=== PATIENT | female | born 1985 | race Caucasian/White ===

== ENCOUNTER 2016-05-29 10:13 | Emergency (ER) | payer OTHER ==
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
--- NOTE | 2016-05-29 11:50 | CR ---
EXAMINATION: Cervical and lumbar spine HISTORY: Pain COMPARISON: None TECHNIQUE: AP and lateral views of the cervical spine in AP and lateral views of the lumbar spine FINDINGS: There is reversal of the normal cervical lordosis. The vertebral body heights appear well maintained . Mild disc space narrowing is noted at C6-C7. No fracture or acute osseous abnormality is noted. Th e prevertebral soft tissues appear normal. The lumbar spinal alignment appears normal. The vertebral body heights appear maintained. Anterior f usion hardware is noted at L4-L5 and L5-S1. Bone mineralization is normal. The SI joints are symmetr ic. No fracture or acute osseous abnormality. IMPRESSION: 1. Postsurgical changes noted within the lumbar spine. 2. No acute osseous abnormality noted within the cervical or lumbar spine.
[2016-05-29 13:02] VITALS: BP 115/60
== END 2016-05-29 12:15 | disposition home or self-care (01) ==
LOC: MW.ED 10:13
DX: M25.60 Stiffness of unspecified joint, not elsewhere classified (principal); V49.49XA Driver injured in collision with other motor vehicles in traffic accident, initial encounter; Y92.410 Unspecified street and highway as the place of occurrence of the external cause
CPT/HCPCS: 72040; 72040-26; 72100; 72100-26; 99282; 99283

== ENCOUNTER 2018-07-08 07:22 | Day surgery (SDC) | payer BC, OTHER ==
[2018-07-07 09:37] LABS: CHLORIDE,CL 106 mmol/L (98-107); SODIUM,NA 142 mmol/L (136-145)
[~2018-07-08 07:22] MED LIST: Sodium Chloride 0.9% 10 ML SDV IV PRN; Sodium Chloride 0.9% 10 ML Syringe FLUSH PRN; Sodium Chloride 0.9% 2.5 ML Syringe FLUSH PRN; ceFAZolin 2 GM in Premix Bag 1 BAG IV ONE
[2018-07-08] MEDS ORDERED: Fluorescein 5 ML Vial ONE (07:36)
[2018-07-08] MEDS ORDERED: Octyl 2-Cyanoacrylate 1 Tube ONE (07:53)
[2018-07-08] MEDS: Lactated Ringers 1,000 ML IV SCH ×2 (08:27→18:00)
[2018-07-08] MEDS ORDERED: Scopolamine 1.5 MG Transdermal Patch TRDERM PRN (08:53)
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
[2018-07-08] MEDS ORDERED: Lidocaine 2% 5 ML SDV ONE (09:16)
[2018-07-08] MEDS ORDERED: Rocuronium 100 MG/10 ML Syringe ONE (09:16)
[2018-07-08] MEDS ORDERED: fentaNYL 250 MCG/5 ML SDV ONE (09:17)
[2018-07-08] MEDS ORDERED: Midazolam 1 MG/ML 2 ML SDV ONE (09:17)
[2018-07-08] MEDS ORDERED: Propofol 200 MG/20 ML SDV ONE (09:17)
[2018-07-08] MEDS ORDERED: ceFAZolin/Dextrose,Iso-Osmotic 2 GM/50 ML Duplex Bag IV ONE (09:31)
[2018-07-08] MEDS ORDERED: Dexamethasone 4 MG/ML 5 ML MDV ONE (10:24)
[2018-07-08] MEDS ORDERED: Ondansetron 4 MG/2 ML SDV ONE (10:24)
[2018-07-08] MEDS ORDERED: Furosemide 40 MG/4 ML VIAL ONE (10:28)
[2018-07-08] MEDS ORDERED: Sodium Chloride 0.9% 20 ML ONE (10:28)
[2018-07-08] MEDS ORDERED: Neostigmine Methylsulfate 1 MG/ML 5 ML Syringe ONE (10:37)
[2018-07-08] MEDS ORDERED: Glycopyrrolate 0.2 MG/ML SDV ONE ×2 (10:37→10:48)
[2018-07-08] MEDS ORDERED: Ketorolac 30 MG/ML SDV IVPUSH ONE (10:48)
[2018-07-08] MEDS ORDERED: Morphine 4 MG/ML Syringe IVPUSH PRN (10:48)
[2018-07-08] MEDS ORDERED: Promethazine 25 MG/ML SDV IM PRN (10:48)
[2018-07-08] MEDS ORDERED: Ketorolac 30 MG/ML SDV IVPUSH PRN (10:48)
[2018-07-08] MEDS ORDERED: Acetaminophen/oxyCODONE 325-5 MG Tab PO PRN ×2 (10:48)
[2018-07-08] MEDS ORDERED: Ondansetron 4 MG/2 ML SDV IVPUSH PRN (10:48)
--- NOTE | 2018-07-08 10:51 | PCM.OPNOTE ---
- General Post-Op/Procedure Note Date of Surgery/Procedure: 07/08/18 Operative Procedure(s): TLH,Cycto Pre Op Diagnosis: bleeding Post-Op Diagnosis: Same Anesthesia Technique: General LMA Primary Surgeon: Jose Alfredo Xei EBL in mLs: 100 Complications: None Condition: Good
[2018-07-08] MEDS ORDERED: Atropine 0.1 MG/ML 10 ML Syringe IVPUSH PRN ×2 (11:11)
[2018-07-08] MEDS ORDERED: Albuterol 0.083% 2.5 MG/3 ML Neb Soln NEB PRN (11:11)
[2018-07-08] MEDS ORDERED: fentaNYL 100 MCG/2 ML SDV IVPUSH PRN (11:11)
[2018-07-08] MEDS ORDERED: Naloxone 0.4 MG/ML Syringe IVPUSH PRN (11:11)
[2018-07-08] MEDS ORDERED: EPINEPHrine 1:10,000 1 MG/10 ML Syringe IVPUSH PRN (11:11)
[2018-07-08] MEDS ORDERED: 50% Dextrose in Water 50 ML Syringe IVPUSH PRN (11:11)
[2018-07-08] MEDS ORDERED: Meperidine PF 25 MG/ML Syringe ONE (11:19)
[2018-07-08] MEDS ORDERED: HYDROmorphone 2 MG/ML Syringe ONE (11:43)
[2018-07-08] MEDS ORDERED: HYDROmorphone 2 MG/ML SDV IVPUSH ONE (11:43)
--- NOTE | 2018-07-08 12:21 | PCM48HPAN ---
Post Anesthesia Note - EVALUATION WITHIN 48HRS OF ANESTHETIC Vital Signs in Normal Range: Yes Patient Participated in Evaluation: Yes Respiratory Function Stable: Yes Airway Patent: Yes Cardiovascular Function Stable: Yes Hydration Status Stable: Yes Pain Control Satisfactory: Yes Nausea and Vomiting Control Satisfactory: Yes Mental Status Recovered: Yes Resp Rate: 16
--- NOTE | 2018-07-08 14:59 | OR ---
SURGEON: Jose Alfredo Xie MD DATE OF PROCEDURE: PREOPERATIVE DIAGNOSES: 1. Menometrorrhagia. 2. Dysmenorrhea. POSTOPERATIVE DIAGNOSES: 1. Menometrorrhagia. 2. Dysmenorrhea. OPERATION PERFORMED: Multiple puncture diagnostic laparoscopy, lysis of adhesions, total laparoscopic hysterectomy, laparoscopic bilateral salpingectomy preserving both ovaries, and cystoscopy. PRIMARY SURGEON: Jose Alfredo Xie MD. SUPERINTENDENT [employer]ORAGE AREA: OR tech. ANESTHESIA: General endotracheal intubation. ESTIMATED BLOOD LOSS: 100 mL. COMPLICATIONS: None. FINDINGS: Pelvic adhesion and anterior abdominal wall adhesion from her previous abdominal surgery from her previous back surgery and some pelvic adhesion from her section. INDICATION: [place] referred to the admit note. PROCEDURE IN DETAIL: The patient was brought to the OR, properly identified, and after adequate level of anesthesia, the patient was placed in lithotomy position with an access to the abdomen and the vagina. The patient was prepped and draped in sterile fashion as usual and then a time-out taken of the patient to reidentify. Jaffe catheter was placed in the bladder and the uterine manipulator placed in the vagina for manipulating the uterus and then the operation shifted abdominally. Stab wound was done beneath the umbilicus. The Veress needle was placed in the peritoneal cavity and that cavity insufflated with 3.5 L of carbon dioxide. Then, the abdomen entered with the Visiport technique without any problem. A 10/12 trocar was placed in the left iliac fossa. Using the Harmonic scapula, the adhesions between the anterior abdominal wall and omentum are lysed methodically without any problem, clearing the path, and have a clear path to the pelvis. A 5 mm trocar was placed in the right iliac fossa and the operation started by coagulating and transecting the superior pedicle on both sides using the Arnulfo Harmonic scapula. The tubes included with specimen and the ovary preserved. Then, the round ligament in the same manner coagulated and transected. Then, the anterior leaf of the broad ligament dissected downward medially pushing the bladder completely away from the operative field. Once it is done, the uterine vessel was skeletonized, and then coagulated and transected at the level of the manipulator. Once it is done, then the vagina is entered with Arnulfo Harmonic scapula in a circular manner around the edge of the manipulator detaching the cervix from its attachment to the vagina. Uterus, cervix, and tubes removed vaginally and then pneumoperitoneum re-established by placing vaginal pack in the vagina, and then the vaginal cuff was closed with 2- 0 PDS interrupted sutures. While we were doing that, we asked Anesthesia to give the patient fluorescein and after closing the vagina, thorough irrigation of the pelvis and inspection of all pedicle shows no oozing and no bleeding. Then, the abdomen is deflated and the Jaffe catheter was removed. Cystoscopy was performed. The bladder was intact. Both ureteric orifices seen with the dye coming from both of them. Thus, the patency of both ureters verified and satisfied with this procedure. With these findings, the procedure ended. The instrument and the tube from the abdomen and the vagina and the multiple laparoscopic incision were closed in layers. Instrument and sponge count were correct. The patient tolerated the procedure well and went to recovery room in stable general condition. KATHY / TYREL /[id number]
[2018-07-08 18:34] VITALS: BP 115/53
--- NOTE | 2018-07-08 19:12 | PCM.DCSUM1 ---
Discharge Summary - Hospital Course Diagnosis: Stroke: No - Discharge Data Discharge Date: 07/08/18 Discharge Disposition: Home, Self-Care 01 Condition: Good - Patient Summary/Data Operative Procedure(s) Performed: TLH,Cycto - Patient Instructions Diet: Usual Diet as Tolerated Activity: As Tolerated Driving: Do Not Drive Showering/Bathing: May Shower - Discharge Plan Home Medications: Home Meds Ibuprofen 2 - 3 tab PO ASDIRECTED PRN 07/05/18 [History] Albuterol [Proventil HFA] 2 puff INH Q4H PRN 07/08/18 [History] Referrals: Jose Alfredo Xie MD [Physician] - 07/21/18 10:00 am - Discharge Summary/Plan Comment DC Time >30 min.: Yes - General Info Date of Service: 07/08/18 Functional Status: Reports: Pain Controlled - Review of Systems General: Reports: No Symptoms HEENT: Reports: No Symptoms Pulmonary: Reports: No Symptoms Cardiovascular: Reports: No Symptoms Gastrointestinal: Reports: No Symptoms Genitourinary: Reports: No Symptoms Musculoskeletal: Reports: No Symptoms Skin: Reports: No Symptoms Neurological: Reports: No Symptoms Psychiatric: Reports: No Symptoms - Patient Data Vitals - Most Recent: Last Vital Signs Temp 36.9 C 07/08/18 18:00 Pulse 80 07/08/18 18:00 Resp 18 07/08/18 18:00 BP 115/53 L 07/08/18 18:00 Pulse Ox 100 07/08/18 18:00 Weight - Most Recent: 89.358 kg I&O - Last 24 hours: Intake & Output 07/08/18 07/08/18 07/08/18 06:59 14:59 22:59 Intake Total 2300 470 Output Total 300 1000 Balance 2000 -530 Med Orders - Current: Current Medications Lactated Ringer's (Ringers, Lactated) 1,000 mls @ 125 mls/hr IV ASDIRECTED MICHELE Last Admin: 07/08/18 18:00 Dose: 125 mls/hr Ketorolac Tromethamine (Toradol) 30 mg IVPUSH Q6H PRN PRN Reason: Pain (severe 7-10) Stop: 07/13/18 10:48 Last Admin: 07/08/18 19:11 Dose: 30 mg Morphine Sulfate (Morphine) 4 mg IVPUSH Q2H PRN PRN Reason: Pain (severe 7-10) Last Admin: 07/08/18 14:50 Dose: 4 mg Ondansetron HCl (Zofran) 4 mg IVPUSH Q6H PRN PRN Reason: Nausea/Vomiting Last Admin: 07/08/18 16:16 Dose: 4 mg Oxycodone/Acetaminophen (Percocet 325-5 Mg) 1 tab PO Q4H PRN PRN Reason: Pain (moderate 4-6) Oxycodone/Acetaminophen (Percocet 325-5 Mg) 2 tab PO Q4H PRN PRN Reason: Pain (moderate 4-6) Last Admin: 07/08/18 16:57 Dose: 2 tab Promethazine HCl (Phenergan) 25 mg IM Q6H PRN PRN Reason: Nausea/Vomiting Last Admin: 07/08/18 13:06 Dose: 25 mg Scopolamine (Transderm-Scop) 1.5 mg TRDERM Q72H PRN PRN Reason: Nausea/Vomiting Last Admin: 07/08/18 09:15 Dose: 1.5 mg Sodium Chloride (Saline Flush) 10 ml FLUSH ASDIRECTED PRN PRN Reason: Keep Vein Open Sodium Chloride (Saline Flush) 2.5 ml FLUSH ASDIRECTED PRN PRN Reason: Keep Vein Open Sodium Chloride (Normal Saline) 10 ml IV ASDIRECTED PRN PRN Reason: IV Use Discontinued Medications Albuterol (Proventil Neb Soln) 2.5 mg NEB ONETIME PRN PRN Reason: Wheezing Atropine Sulfate (Atropine 0.1 Mg/Ml) 0.5 mg IVPUSH ASDIRECTED PRN PRN Reason: Hypo-perfusion Atropine Sulfate (Atropine 0.1 Mg/Ml) 1 mg IVPUSH ASDIRECTED PRN PRN Reason: Hypo-Perfusion Cefazolin Sodium/Dextrose (Ancef) Confirm Administered Dose 2 gm IV .STK-MED ONE Stop: 07/08/18 09:32 Dexamethasone (Dexamethasone) Confirm Administered Dose 20 mg .ROUTE .STK-MED ONE Stop: 07/08/18 10:25 Dextrose/Water (Dextrose 50% In Water) 50 ml IVPUSH ASDIRECTED PRN PRN Reason: Hypoglycemia Epinephrine HCl (Epinephrine 1:10,000) 1 mg IVPUSH ASDIRECTED PRN PRN Reason: ACLS Guidelines Fentanyl (Sublimaze) Confirm Administered Dose 250 mcg .ROUTE .STK-MED ONE Stop: 07/08/18 09:18 Fentanyl (Sublimaze) 50 mcg IVPUSH Q5M PRN PRN Reason: Pain Last Admin: 07/08/18 11:20 Dose: 50 mcg Fluorescein Sodium (Ak-Fluor) Confirm Administered Dose 5 ml .ROUTE .STK-MED ONE Stop: 07/08/18 07:37 Furosemide (Lasix) Confirm Administered Dose 40 mg .ROUTE .STK-MED ONE Stop: 07/08/18 10:29 Glycopyrrolate (Robinul) Confirm Administered Dose 0.4 mg .ROUTE .STK-MED ONE Stop: 07/08/18 10:38 Glycopyrrolate (Robinul) Confirm Administered Dose 0.2 mg .ROUTE .STK-MED ONE Stop: 07/08/18 10:49 Hydromorphone HCl (Dilaudid) 2 mg IVPUSH ONETIME ONE Stop: 07/08/18 11:44 Last Admin: 07/08/18 12:00 Dose: 0.5 mg Hydromorphone HCl (Dilaudid) Confirm Administered Dose 2 mg .ROUTE .STK-MED ONE Stop: 07/08/18 11:44 Last Admin: 07/08/18 16:50 Dose: Not Given Cefazolin Sodium/Dextrose 2 gm (/ Premix) 50 mls @ 100 mls/hr IV ONETIME ONE Stop: 07/07/18 09:14 Last Admin: 07/08/18 16:51 Dose: Not Given Acetaminophen (Ofirmev) Confirm Administered Dose 100 mls @ as directed IV .STK- MED ONE Stop: 07/08/18 07:37 Sodium Chloride (Normal Saline) Confirm Administered Dose 20 mls @ as directed .ROUTE .STK-MED ONE Stop: 07/08/18 10:29 Ketorolac Tromethamine (Toradol) 30 mg IVPUSH ONETIME ONE Stop: 07/08/18 10:49 Last Admin: 07/08/18 13:13 Dose: 30 mg Lidocaine (Xylocaine-Mpf 2%) Confirm Administered Dose 5 ml .ROUTE .STK-MED ONE Stop: 07/08/18 09:17 Meperidine HCl (Demerol) Confirm Administered Dose 25 mg .ROUTE .STK-MED ONE Stop: 07/08/18 11:20 Last Admin: 07/08/18 11:59 Dose: 25 mg Midazolam HCl (Versed 1 Mg/Ml) Confirm Administered Dose 2 mg .ROUTE .STK-MED ONE Stop: 07/08/18 09:18 Naloxone HCl (Narcan) 0.1 mg IVPUSH ASDIRECTED PRN PRN Reason: Respiratory Depression Neostigmine Methylsulfate (Neostigmine) Confirm Administered Dose 5 mg .ROUTE .STK-MED ONE Stop: 07/08/18 10:38 Octyl Cyanoacrylate (Dermabond Advance) Confirm Administered Dose 1 applic .ROUTE .STK-MED ONE Stop: 07/08/18 07:54 Ondansetron HCl (Zofran) Confirm Administered Dose 4 mg .ROUTE .STK-MED ONE Stop: 07/08/18 10:25 Propofol (Diprivan 20 Ml) Confirm Administered Dose 200 mg .ROUTE .STK-MED ONE Stop: 07/08/18 09:18 Rocuronium [place] (Zemuron) Confirm Administered Dose 100 mg .ROUTE .STYeHive-MED ONE Stop: 07/08/18 09:17 - Exam General: Reports: Alert, Oriented HEENT: Reports: Pupils Equal, Pupils Reactive, EOMI, Mucous Membr. Moist/[place] Neck: Reports: Supple Lungs: Reports: Clear to Auscultation, Normal Respiratory Effort Cardiovascular: Reports: Regular Rate, Regular Rhythm GI/Abdominal Exam: Normal Bowel Sounds, Soft, Non-Tender, No Organomegaly, No Distention, No Abnormal Bruit, No Mass, Pelvis Stable (Female) Exam: Normal External Exam, Normal Speculum Exam, Normal Bimanual Exam Rectal (Female) Exam: Normal Exam, Normal Rectal Tone Back Exam: Reports: Normal Inspection, Full Range of Motion Extremities: Normal Inspection, Normal Range of Motion, Non-Tender, No Pedal Edema, Normal Capillary Refill Skin: Reports: Warm, Dry, Intact Wound/Incisions: Reports: Healing Well Neurological: Reports: No New Focal Deficit Psy/Mental Status: Reports: Alert, Normal Affect, Normal Mood
== END 2018-07-08 19:55 | disposition home or self-care (01) ==
LOC: MW.SDS 07:22 → MW.MS 07:22 → MW.SDS 19:55
PROVIDERS: ATTEND Obstetrics & Gynecology
DX: N92.1 Excessive and frequent menstruation with irregular cycle (principal); N83.8 Other noninflammatory disorders of ovary, fallopian tube and broad ligament; N94.6 Dysmenorrhea, unspecified; N73.6 Female pelvic peritoneal adhesions (postinfective); J45.909 Unspecified asthma, uncomplicated; E66.9 Obesity, unspecified; Z68.30 Body mass index [BMI] 30.0-30.9, adult; Z87.891 Personal history of nicotine dependence
CPT/HCPCS: 36415; 58571; 80048; 84703; 85027; 86850; 86900; 86901; A9270; J0131; J0690; J1100; J1170; J1885; J1940; J2001; J2175; J2250; J2270; J2405; J2550; J2704; J3010; J3490; J7120; 00840

== ENCOUNTER 2018-07-18 22:10 | Observation (INO) | payer BC ==
--- NOTE | 2018-07-18 22:20 | EDM.PDOC ---
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,AFTER EFFECT OF HYSERECTOMY Time Seen by Provider: 07/18/18 22:17 - History of Present Illness INITIAL COMMENTS - FREE TEXT/NARRATIVE: HISTORY AND PHYSICAL: History of present illness: Patient is a 32-year-old white female was 10 days status post laparoscopic hysterectomy who presents with a concern a large vaginal bleeding and dizziness she states it started earlier today and got progressively worse to where she is used approximately 6 pads since 6 PM on arrival patient did say who was on her pad and this was viewed in a hat for the toilet that has large blood with clots noted Review of systems: As per history of present illness and below otherwise all systems reviewed and negative. Past medical history: As per history of present illness and as reviewed below otherwise noncontributory. Surgical history: As per history of present illness and as reviewed below otherwise noncontributory. Social history: No reported history of drug or alcohol abuse. Family history: As per history of present illness and as reviewed below otherwise noncontributory. Physical exam: HEENT: Atraumatic, normocephalic, pupils reactive, negative for conjunctival pallor or scleral icterus, mucous membranes moist, throat clear, neck supple, nontender, trachea midline. Lungs: Clear to auscultation, breath sounds equal bilaterally, chest nontender. Heart: S1S2, regular, negative for clicks, rubs, or JVD. Abdomen: Soft, nondistended, nontender. Negative for masses or hepatosplenomegaly. Negative for costovertebral tenderness. Pelvis: Stable nontender. Genitourinary: Vaginal vault with moderate blood and small clot after evacuation small oozing noted from vaginal cuff Rectal: Deferred. Extremities: Atraumatic, negative for cords or calf pain. Neurovascular unremarkable. Neuro: Awake, alert, oriented. Cranial nerves II through XII unremarkable. Cerebellum unremarkable. Motor and sensory unremarkable throughout. Exam nonfocal. Diagnostics: CBC CMP PT/INR orthostatic vitals Therapeutics: Saline 1 L bolus Impression: #1 postoperative bleeding #2 10 days status post laparoscopic hysterectomy #3 dizziness Definitive disposition and diagnosis as appropriate pending reevaluation and review of above. 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: Musculoskeletal History: Reports: Fracture Other Musculoskeletal History: hx fx wrist and rt arm Neurological History: Reports: Migraines Psychiatric History: Reports: None Endocrine/Metabolic History: Reports: None Hematologic History: Reports: None Immunologic History: Reports: None Oncologic (Cancer) History: Reports: None Dermatologic History: Reports: None - Past Surgical History Head Surgeries/Procedures: Reports: None HEENT Surgical History: Reports: None Cardiovascular Surgical History: Reports: None Respiratory Surgical History: Reports: None GI Surgical History: Reports: None Female Surgical History: Reports: Section Endocrine Surgical History: Reports: None Neurological Surgical History: Reports: Lumbar Spine Other Neurological Surgeries/Procedures: back surgery x2 Musculoskeletal Surgical History: Reports: None Oncologic Surgical History: Reports: None Dermatological Surgical History: Reports: None Social & Family History - Family History Family Medical History: Noncontributory - Caffeine Use Caffeine Use: Reports: Coffee ED ROS GENERAL - Review of Systems Review Of Systems: ROS reveals no pertinent complaints other than HPI. ED EXAM, GENERAL - Physical Exam Exam: See Below (dictation) Departure - Departure Time of Disposition: 22:30 Disposition: Refer to Observation Condition: Good Clinical Impression: Postoperative vaginal bleeding, Dizziness - Discharge Information Referrals: PCP,None [Primary Care Provider] - Forms: ED Department Discharge
[2018-07-18] MEDS ORDERED: Sodium Chloride 0.9% 1,000 ML IV ONE (22:43)
[2018-07-18 23:05] LABS: CHLORIDE,CL 105 mmol/L (98-107); SODIUM,NA 143 mmol/L (136-145)
[2018-07-19] MEDS: Acetaminophen/oxyCODONE 325-5 MG Tab PO PRN ×2 (00:56→08:15)
[2018-07-19] MEDS: Ondansetron 4 MG Tab.DIS PO PRN ×2 (00:57→08:27)
[2018-07-19 08:19] VITALS: BP 97/51
--- NOTE | 2018-07-19 09:29 | PCM.PN ---
- General Info Date of Service: 07/19/18 Functional Status: Reports: Pain Controlled - Review of Systems General: Reports: No Symptoms HEENT: Reports: No Symptoms Pulmonary: Reports: No Symptoms Cardiovascular: Reports: No Symptoms Gastrointestinal: Reports: No Symptoms Genitourinary: Reports: No Symptoms Musculoskeletal: Reports: No Symptoms Skin: Reports: No Symptoms Neurological: Reports: No Symptoms Psychiatric: Reports: No Symptoms - Patient Data Vitals - Most Recent: Last Vital Signs Temp 36.3 C 07/19/18 08:00 Pulse 64 07/19/18 08:00 Resp 18 07/19/18 08:00 BP 97/51 L 07/19/18 08:00 Pulse Ox 95 07/19/18 08:00 Weight - Most Recent: 90.832 kg I&O - Last 24 Hours: Intake & Output 07/18/18 07/19/18 07/19/18 22:59 06:59 14:59 Intake Total 50 Output Total 400 Balance -350 Lab Results Last 24 Hours: Laboratory Results - last 24 hr 07/18/18 07/18/18 07/18/18 Range/Units 22:35 22:35 22:35 WBC 10.43 (4.0-11.0) K/uL RBC 4.26 L (4.30-5.90) M/uL Hgb 12.8 (12.0-16.0) g/dL Hct 38.1 (36.0-46.0) % MCV 89.4 (80.0-98.0) fL MCH 30.0 (27.0-32.0) pg MCHC 33.6 (31.0-37.0) g/dL RDW Std Deviation 41.1 (28.0-62.0) fl RDW Coeff of Melissa 13 (11.0-15.0) % Plt Count 256 (150-400) K/uL MPV 10.80 (7.40-12.00) fL Neut % (Auto) 58.5 (48.0-80.0) % Lymph % (Auto) 31.0 (16.0-40.0) % [place] % (Auto) 6.8 (0.0-15.0) % Eos % (Auto) 3.2 (0.0-7.0) % Baso % (Auto) 0.5 (0.0-1.5) % Neut # (Auto) 6.1 H (1.4-5.7) K/uL Lymph # (Auto) 3.2 H (0.6-2.4) K/uL [place] # (Auto) 0.7 (0.0-0.8) K/uL Eos # (Auto) 0.3 (0.0-0.7) K/uL Baso # (Auto) 0.1 (0.0-0.1) K/uL Nucleated RBC % 0.0 /100WBC Nucleated RBCs # 0 K/uL INR 0.98 Sodium 143 (136-145) mmol/L Potassium 3.9 (3.5-5.1) mmol/L Chloride 105 (98-107) mmol/L Carbon Dioxide 28.8 (21.0-32.0) mmol/L BUN 16 (7.0-18.0) mg/dL Creatinine 0.8 (0.6-1.0) mg/dL Est Cr Clr Drug Dosing 93.63 mL/min Estimated GFR (MDRD) > 60.0 ml/min Glucose 102 (74-106) mg/dL Calcium 9.0 (8.5-10.1) mg/dL Total Bilirubin 0.3 (0.2-1.0) mg/dL AST 19 (15-37) IU/L ALT 34 (14-63) IU/L Alkaline Phosphatase 113 (46-116) U/L Total Protein 7.4 (6.4-8.2) g/dL Albumin 3.8 (3.4-5.0) g/dL Globulin 3.6 (2.6-4.0) g/dL Albumin/Globulin Ratio 1.1 (0.9-1.6) Blood Type Antibody Screen 07/18/18 07/19/18 Range/Units 22:52 05:57 WBC (4.0-11.0) K/uL RBC (4.30-5.90) M/uL Hgb 11.0 L (12.0-16.0) g/dL Hct 33.5 L (36.0-46.0) % MCV (80.0-98.0) fL MCH (27.0-32.0) pg MCHC (31.0-37.0) g/dL RDW Std Deviation (28.0-62.0) fl RDW Coeff of Melissa (11.0-15.0) % Plt Count (150-400) K/uL MPV (7.40-12.00) fL Neut % (Auto) (48.0-80.0) % Lymph % (Auto) (16.0-40.0) % [place] % (Auto) (0.0-15.0) % Eos % (Auto) (0.0-7.0) % Baso % (Auto) (0.0-1.5) % Neut # (Auto) (1.4-5.7) K/uL Lymph # (Auto) (0.6-2.4) K/uL [place] # (Auto) (0.0-0.8) K/uL Eos # (Auto) (0.0-0.7) K/uL Baso # (Auto) (0.0-0.1) K/uL Nucleated RBC % /100WBC Nucleated RBCs # K/uL INR Sodium (136-145) mmol/L Potassium (3.5-5.1) mmol/L Chloride (98-107) mmol/L Carbon Dioxide (21.0-32.0) mmol/L BUN (7.0-18.0) mg/dL Creatinine (0.6-1.0) mg/dL Est Cr Clr Drug Dosing mL/min Estimated GFR (MDRD) ml/min Glucose (74-106) mg/dL Calcium (8.5-10.1) mg/dL Total Bilirubin (0.2-1.0) mg/dL AST (15-37) IU/L ALT (14-63) IU/L Alkaline Phosphatase (46-116) U/L Total Protein (6.4-8.2) g/dL Albumin (3.4-5.0) g/dL Globulin (2.6-4.0) g/dL Albumin/Globulin Ratio (0.9-1.6) Blood Type A POSITIVE Antibody Screen NEGATIVE Med Orders - Current: Current Medications Ondansetron HCl (Zofran Odt) 4 mg PO Q4H PRN PRN Reason: Nausea/Vomiting Last Admin: 07/19/18 08:27 Dose: 4 mg Oxycodone/Acetaminophen (Percocet 325-5 Mg) 1 tab PO Q4H PRN PRN Reason: Pain Last Admin: 07/19/18 08:15 Dose: 1 tab Discontinued Medications Sodium Chloride (Normal Saline) 1,000 mls @ 999 mls/hr IV .Bolus ONE Stop: 07/18/18 23:43 Last Admin: 07/18/18 22:48 Dose: 999 mls/hr - Exam General: Alert, Oriented HEENT: Pupils Equal, Pupils Reactive, EOMI, Mucous Membr. Moist/[place] Neck: Supple Lungs: Clear to Auscultation, Normal Respiratory Effort Cardiovascular: Regular Rate, Regular Rhythm GI/Abdominal Exam: Normal Bowel Sounds, Soft, Non-Tender, No Organomegaly, No Distention, No Abnormal Bruit, No Mass, Pelvis Stable (Female) Exam: Normal External Exam, Normal Speculum Exam, Normal Bimanual Exam Back Exam: Normal Inspection, Full Range of Motion Extremities: Normal Inspection, Normal Range of Motion, Non-Tender, No Pedal Edema, Normal Capillary Refill Skin: Warm, Dry, Intact Wound/Incisions: Healing Well Neurological: No New Focal Deficit Psy/Mental Status: Alert, Normal Affect, Normal Mood - Problem List Review Problem List Initiated/Reviewed/Updated: Yes - My Orders Last 24 Hours: My Active Orders 07/19/18 00:31 Activity as Tolerated [RC] .Routine 07/19/18 00:42 Acetaminophen/oxyCODONE [Percocet 325-5 MG] 1 tab PO Q4H PRN Ondansetron [Zofran ODT] 4 mg PO Q4H PRN 07/19/18 07:00 Vital Signs [RC] Q4H 07/19/18 Breakfast Regular Diet [DIET] - Assessment Assessment:: doing well no bleeding. H&H are stable. - Plan Plan:: will send home
--- NOTE | 2018-07-21 08:19 | CONS ---
DATE OF CONSULTATION: 07/19/2018 DATE OF : 1985 PRIMARY CARE PHYSICIAN: William PCP BRIEF HISTORY: The patient is 32-year-old. She is status post total laparoscopic hysterectomy 10 days ago and hysterectomy was uncomplicated. The patient came to the emergency room last night. She stated that she has vaginal bleeding and clotting. For details of the history and physical and presentation of the case, the reader referred to the emergency room doctor evaluation and examination. The patient in the emergency room was stable. She is not orthostatic. She is not hypertensive and her hemoglobin was 12.2. She was examined by the emergency room doctor vaginally, and according to his examination and her verbal report, there was no active bleeding. The vaginal cuff is intact, and there is a small blood clot at the vaginal cuff. Because of the patient's history, we elected to admit the patient to the hospital for observation and evaluation. In the morning of her admission, I visited with the patient. The patient was not bleeding. She was ambulatory. She is voiding without any problem. She is on regular diet. Her hemoglobin is 11.6, which is not significantly different from her hemoglobin in the emergency room, and the patient expressed her desire to go home. I am sending her home to be on bedrest, and she already has an appointment to see me on Thursday, and we will evaluate her then. KATHY SARAH /[id number]
== END 2018-07-19 10:23 | disposition home or self-care (01) ==
LOC: MW.ED 22:10 → MW.MS 23:35
PROVIDERS: ADMIT Obstetrics & Gynecology; ATTEND Obstetrics & Gynecology
DX: N99.820 Postprocedural hemorrhage of a genitourinary system organ or structure following a genitourinary system procedure (principal); R42 Dizziness and giddiness; Z90.710 Acquired absence of both cervix and uterus
CPT/HCPCS: 36415; 80053; 85014; 85018; 85025; 85610; 86850; 86900; 86901; 96360; 99285; A9270; J7040; G0378

== ENCOUNTER 2019-03-18 19:30 | Emergency (ER) | payer BC ==
[2019-03-18] MEDS ORDERED: diphenhydrAMINE 50 MG/ML SDV IVPUSH ONE (20:26)
[2019-03-18] MEDS ORDERED: Ketorolac 30 MG/ML SDV IVPUSH ONE (20:29)
[2019-03-18] MEDS ORDERED: Prochlorperazine 10 MG/2 ML SDV IVPUSH ONE (20:30)
[2019-03-18] MEDS ORDERED: Sodium Chloride 0.9% 1,000 ML IV ONE (20:31)
--- NOTE | 2019-03-18 21:19 | EDM.PDOC ---
ED HPI GENERAL MEDICAL PROBLEM - General Chief Complaint: General Stated Complaint: MIGRAINE Time Seen by Provider: 03/18/19 20:15 Source of Information: Reports: Patient History Limitations: Reports: No Limitations - History of Present Illness INITIAL COMMENTS - FREE TEXT/NARRATIVE: Pt with reported pmh of Migraine headache resents with her typical migraine headache. Pt has taken excedrin today and is in the process of getting botox injections for her migraines. No other symptoms. Headache Pain Score (Numeric/FACES): 9 - Related Data Allergies Allergy/AdvReac Type Severity Reaction Status Date / Time No Known Allergies Allergy Verified 03/18/19 19:57 Home Meds: Home Meds . 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: Musculoskeletal History: Reports: Fracture Other Musculoskeletal History: hx fx wrist and rt arm Neurological History: Reports: Migraines Psychiatric History: Reports: None Endocrine/Metabolic History: Reports: None Hematologic History: Reports: None Immunologic History: Reports: None Oncologic (Cancer) History: Reports: None Dermatologic History: Reports: None - Infectious Disease History Infectious Disease History: Reports: Chicken Pox - Past Surgical History Head Surgeries/Procedures: Reports: None HEENT Surgical History: Reports: None Cardiovascular Surgical History: Reports: None Respiratory Surgical History: Reports: None GI Surgical History: Reports: None Female Surgical History: Reports: Section, Hysterectomy Endocrine Surgical History: Reports: None Neurological Surgical History: Reports: Lumbar Spine Other Neurological Surgeries/Procedures: back surgery x2 Musculoskeletal Surgical History: Reports: Other (See Below) Other Musculoskeletal Surgeries/Procedures:: 2 back surgeries, hardware in place. Oncologic Surgical History: Reports: None Dermatological Surgical History: Reports: None Social & Family History - Family History Family Medical History: Noncontributory Oncologic: Reports: Pancreatic - Tobacco Use Smoking Status *Q: Never Smoker Second Hand Smoke Exposure: No - Caffeine Use Caffeine Use: Reports: None - Recreational Drug Use Recreational Drug Use: No ED ROS GENERAL - Review of Systems Review Of Systems: See Below Constitutional: Reports: No Symptoms. Denies: Fever Respiratory: Reports: No Symptoms Cardiovascular: Reports: No Symptoms GI/Abdominal: Reports: No Symptoms Skin: Reports: No Symptoms Neurological: Reports: Headache. Denies: Numbness, Weakness ED EXAM, GENERAL - Physical Exam Exam: See Below General Appearance: Alert, WD/WN, No Apparent Distress Head: Atraumatic, Normocephalic Neck: Normal Inspection, Full Range of Motion Respiratory/Chest: Lungs Clear, Normal Breath Sounds Cardiovascular: Regular Rate, Rhythm, No Murmur GI/Abdominal: Soft, Non-Tender, No Distention Neurological: Alert, Oriented, CN II-XII Intact, Normal Cognition, No Motor/ Sensory Deficits Course - Vital Signs Last Recorded V/S: Last Vital Signs Temp 97.9 F 03/18/19 19:54 Pulse 65 03/18/19 19:54 Resp 18 03/18/19 19:54 BP 114/74 03/18/19 19:54 Pulse Ox 98 03/18/19 19:54 - Orders/Labs/Meds Meds: Medications Discontinued Medications Generic Name Dose Route Start Last Admin Trade Name Eleazar PRN Reason Stop Dose Admin Diphenhydramine HCl 25 mg 03/18/19 20:26 03/18/19 20:39 Benadryl IVPUSH 03/18/19 20:27 25 mg ONETIME ONE Administration Sodium Chloride 1,000 mls @ 999 mls/hr 03/18/19 20:31 03/18/19 20:39 Normal Saline IV 03/18/19 21:31 999 mls/hr .Bolus ONE Administration Ketorolac Tromethamine 30 mg 03/18/19 20:29 03/18/19 20:39 Toradol IVPUSH 03/18/19 20:30 30 mg ONETIME ONE Administration Prochlorperazine Edisylate 10 mg 03/18/19 20:30 03/18/19 20:40 Compazine IVPUSH 03/18/19 20:31 10 mg ONETIME ONE Administration Departure - Departure Time of Disposition: 21:43 Disposition: Home, Self-Care 01 Condition: Good Clinical Impression: Migraine - Discharge Information *PRESCRIPTION DRUG MONITORING PROGRAM REVIEWED*: Not Applicable *COPY OF PRESCRIPTION DRUG MONITORING REPORT IN PATIENT YULISSA: Not Applicable Instructions: Recurrent Migraine Headache, [id number] Referrals: Sara Eduardo NP [Primary Care Provider] - Forms: ED Department Discharge Sepsis Event Note - Evaluation Sepsis Screening Result: No Definite Risk - Focused Exam Vital Signs: Vital Signs Temp Pulse Resp BP Pulse Ox 03/18/19 19:54 97.9 F 65 18 114/74 98 Date Exam was Performed: 03/18/19 Time Exam was Performed: 21:43
[2019-03-18 21:53] VITALS: BP 108/60; PULSE 62
== END 2019-03-18 21:55 | disposition home or self-care (01) ==
LOC: MW.ED 19:30
DX: G43.909 Migraine, unspecified, not intractable, without status migrainosus (principal)
CPT/HCPCS: 96361; 96374; 96375; 99284; J0780; J1200; J1885; J7030; 99282

== ENCOUNTER 2022-01-19 03:26 | Emergency (ER) | payer BC ==
[2022-01-19] MEDS ORDERED: Albuterol/Ipratropium 3.0-0.5 MG/3 ML Neb Soln NEB ONE (03:29)
[2022-01-19] MEDS ORDERED: Albuterol/Ipratropium 3.0-0.5 MG/3 ML Neb Soln ONE (03:30)
[2022-01-19] MEDS ORDERED: Sodium Chloride 0.9% 1,000 ML IV ONE (03:51)
[2022-01-19] MEDS ORDERED: Dexamethasone 10 MG/ML SDV IVPUSH ONE (03:53)
[2022-01-19 04:33] LABS: CORONAVIRUS COVID-19 NAA NEGATIVE (NEGATIVE); INFLUENZA A NAA NEGATIVE (NEGATIVE); INFLUENZA B NAA NEGATIVE (NEGATIVE); RESPIRATORY SYNCYTIAL VIR NAA NEGATIVE (NEGATIVE)
[2022-01-19 05:00] LABS: POTASSIUM,K 3.7 mmol/L (3.5-5.1)
[2022-01-19] MEDS ORDERED: Albuterol 8 GM Inhaler INH SCH (05:30)
[2022-01-19 06:30] VITALS: BP 132/68; PULSE 66
== END 2022-01-19 06:29 | disposition home or self-care (01) ==
LOC: MW.ED 03:26
DX: J40 Bronchitis, not specified as acute or chronic (principal); Z20.822 Contact with and (suspected) exposure to COVID-19
CPT/HCPCS: 0241U; 36415; 71045; 80053; 83605; 84703; 85025; 94640; 96361; 96374; 99285; A9270; J1100; J7030; J7620-GY

== ENCOUNTER 2023-01-23 13:28 | Emergency (ER) | payer BC ==
[2023-01-23] MEDS ORDERED: Metoclopramide 10 MG/2 ML SDV IVPUSH ONE (13:52)
[2023-01-23] MEDS ORDERED: Dexamethasone 10 MG/ML SDV IVPUSH ONE (13:52)
[2023-01-23] MEDS ORDERED: diphenhydrAMINE 50 MG/ML SDV IVPUSH ONE (13:52)
[2023-01-23] MEDS ORDERED: Ketorolac 30 MG/ML SDV IVPUSH ONE (13:52)
[2023-01-23] MEDS ORDERED: Sodium Chloride 0.9% 1,000 ML IV ONE (13:52)
[2023-01-23] MEDS ORDERED: Magnesium Sulfate/Water 2 GM in Premix Bag 1 BAG IV ONE (13:53)
[2023-01-23] MEDS ORDERED: Acetaminophen/Butalbital/Caffeine 325-50-40 MG Tab PO STA (13:57)
[2023-01-23 14:06] LABS: BASOPHILS ABSOLUTE AUTO 0.05 K/uL (0.00-0.20); BASOPHILS PERCENT AUTO 0.7 % (0.0-1.0); EOSINOPHILS ABSOLUTE AUTO 0.13 K/uL (0.00-0.45); EOSINOPHILS PERCENT AUTO 1.7 % (0.0-6.0); HEMATOCRIT 38.7 % (37.0-47.0); HEMOGLOBIN 13.6 g/dL (12.0-16.0); IMMATURE GRAN ABSOLUTE AUTO 0.01 K/uL (0.00-0.05); IMMATURE GRAN PERCENT AUTO 0.1 % (0.0-0.4); LYMPHOCYTES ABSOLUTE AUTO 2.89 K/uL (1.00-4.80); LYMPHOCYTES PERCENT AUTO 38.5 % (24.0-44.0); MEAN CORPUSCULAR HEMOGLOBIN 30.8 pg (28.0-32.0); MEAN CORPUSCULAR HGB CONC 35.1 g/dL (32.0-36.0); MEAN CORPUSCULAR VOLUME 87.8 fL (83.0-99.0); MEAN PLATELET VOLUME 10.5 fL (9.4-12.3); MONOCYTES ABSOLUTE AUTO 0.47 K/uL (0.00-0.80); MONOCYTES PERCENT AUTO 6.3 % (0.0-8.0); NEUTROPHILS ABSOLUTE AUTO 3.95 K/uL (1.80-7.70); NEUTROPHILS PERCENT AUTO 52.7 % (41.0-71.0); PLATELET COUNT,PLT 224 K/uL (150-400); RED BLOOD CELL COUNT 4.41 M/uL (4.10-5.30)
[2023-01-23 14:37] LABS: INR 0.97 (0.86-1.11)
[2023-01-23 14:48] LABS: A/G RATIO 1.1 (0.9-1.6); ALBUMIN 3.8 g/dL (3.4-5.0); BILIRUBIN TOTAL 0.2 mg/dL (0.2-1.0); CALCIUM 9.1 mg/dL (8.5-10.1); CARBON DIOXIDE,CO2 28.3 mmol/L (21.0-32.0); CREATININE 0.8 mg/dL (0.6-1.0); EST CRCL DRUG DOSING (CG) 96.18 mL/min; POTASSIUM,K 3.9 mmol/L (3.5-5.1); PROTEIN TOTAL,TP 7.4 g/dL (6.4-8.2)
[2023-01-23 14:51] LABS: CORONAVIRUS COVID-19 NAA NEGATIVE (NEGATIVE); INFLUENZA A NAA NEGATIVE (NEGATIVE); INFLUENZA B NAA NEGATIVE (NEGATIVE)
[2023-01-23] MEDS ORDERED: Iopamidol 755 MG/ML 500 ML Multipack Bottle IVPUSH STA (15:31)
[2023-01-23 17:02] VITALS: BP 117/59; PULSE 77
== END 2023-01-23 17:01 | disposition home or self-care (01) ==
LOC: MW.ED 13:28
DX: G43.909 Migraine, unspecified, not intractable, without status migrainosus (principal); Z90.710 Acquired absence of both cervix and uterus; Z20.822 Contact with and (suspected) exposure to COVID-19
CPT/HCPCS: 0240U; 36415; 70450; 70496; 70498; 80053; 84703; 85025; 85610; 85730; 96365; 96375; 99284; A9270; J1100; J1200; J1885; J2765; J3475; J7030; Q9967

== ENCOUNTER 2023-08-18 13:15 | Emergency (ER) | payer OTHER ==
[2023-08-18 13:28] VITALS: BP 97/59; PULSE 59
[2023-08-18 14:19] LABS: BASOPHILS ABSOLUTE AUTO 0.05 K/uL (0.00-0.20); BASOPHILS PERCENT AUTO 0.7 % (0.0-1.0); EOSINOPHILS ABSOLUTE AUTO 0.17 K/uL (0.00-0.45); EOSINOPHILS PERCENT AUTO 2.4 % (0.0-6.0); HEMATOCRIT 40.4 % (37.0-47.0); HEMOGLOBIN 13.6 g/dL (12.0-16.0); IMMATURE GRAN ABSOLUTE AUTO 0.01 K/uL (0.00-0.05); IMMATURE GRAN PERCENT AUTO 0.1 % (0.0-0.4); LYMPHOCYTES ABSOLUTE AUTO 2.56 K/uL (1.00-4.80); LYMPHOCYTES PERCENT AUTO 35.8 % (24.0-44.0); MEAN CORPUSCULAR HEMOGLOBIN 30.5 pg (28.0-32.0); MEAN CORPUSCULAR HGB CONC 33.7 g/dL (32.0-36.0); MEAN CORPUSCULAR VOLUME 90.6 fL (83.0-99.0); MONOCYTES ABSOLUTE AUTO 0.41 K/uL (0.00-0.80); MONOCYTES PERCENT AUTO 5.7 % (0.0-8.0); NEUTROPHILS ABSOLUTE AUTO 3.95 K/uL (1.80-7.70); NEUTROPHILS PERCENT AUTO 55.3 % (41.0-71.0); PLATELET COUNT,PLT 247 K/uL (150-400); RED BLOOD CELL COUNT 4.46 M/uL (4.10-5.30); WHITE BLOOD CELL COUNT,WBC 7.15 K/uL (3.9-11.3)
[2023-08-18 14:26] LABS: INR 1.02 (0.86-1.11); PTT,PARTIAL THROMBOPLSTIN TIME 27.9 SEC (23.9-30.7)
[2023-08-18] MEDS: Sodium Chloride 0.9% 1,000 ML IV STA ×2 (14:28→15:57)
[2023-08-18] MEDS: Ketorolac 30 MG/ML SDV IVPUSH STA (14:28)
[2023-08-18] MEDS: Metoclopramide 10 MG/2 ML SDV IVPUSH STA (14:28)
[2023-08-18] MEDS: Magnesium Sulfate/Water 2 GM in Premix Bag 1 BAG IV STA (14:28)
[2023-08-18] MEDS: diphenhydrAMINE 50 MG/ML SDV IVPUSH STA (14:28)
[2023-08-18 14:33] LABS: A/G RATIO 1.2 (0.9-1.6); BILIRUBIN TOTAL 0.4 mg/dL (0.2-1.0); CALCIUM 8.7 mg/dL (8.5-10.1); CARBON DIOXIDE,CO2 29.3 mmol/L (21.0-32.0); CREATININE 0.8 mg/dL (0.6-1.0); EST CRCL DRUG DOSING (CG) 96.18 mL/min; POTASSIUM,K 3.8 mmol/L (3.5-5.1); PROTEIN TOTAL,TP 7.4 g/dL (6.4-8.2)
[2023-08-18] MEDS: Promethazine 25 MG/ML SDV IM STA (15:59)
== END 2023-08-18 17:17 | disposition home or self-care (01) ==
LOC: MW.ED 13:15
DX: G43.909 Migraine, unspecified, not intractable, without status migrainosus (principal); Z75.8 Other problems related to medical facilities and other health care; Z79.899 Other long term (current) drug therapy
CPT/HCPCS: 36415; 80053; 84703; 85025; 85610; 85730; 96361; 96365; 96372; 96375; 99284; J1100; J1200; J1885; J2550; J2765; J3475; J7030; 99283

== ENCOUNTER 2023-11-18 17:58 | Emergency (ER) | payer BC, OTHER ==
[2023-11-18] MEDS: Codeine/guaiFENesin 10-100 MG/5 ML Syrup 5 ML Cup PO ONE (18:40)
[2023-11-18 19:04] LABS: CORONAVIRUS COVID-19 NAA NEGATIVE (NEGATIVE); INFLUENZA A NAA NEGATIVE (NEGATIVE); INFLUENZA B NAA NEGATIVE (NEGATIVE)
[2023-11-18 19:18] VITALS: BP 122/69; PULSE 80
== END 2023-11-18 19:20 | disposition home or self-care (01) ==
LOC: MW.ED 17:58
DX: J40 Bronchitis, not specified as acute or chronic (principal); Z90.710 Acquired absence of both cervix and uterus; Z75.8 Other problems related to medical facilities and other health care; Z79.899 Other long term (current) drug therapy
CPT/HCPCS: 0240U; 87651; 99283; A9270

== ENCOUNTER 2023-12-21 08:33 | Emergency (ER) | payer BC, OTHER ==
[2023-12-21] MEDS: Ketorolac 30 MG/ML SDV IM ONE (09:25)
[2023-12-21] MEDS: Cyclobenzaprine 10 MG Tab PO ONE (09:26)
[2023-12-21 10:52] VITALS: BP 100/75; PULSE 69
== END 2023-12-21 10:51 | disposition home or self-care (01) ==
LOC: MW.ED 08:33
DX: M54.50 Low back pain, unspecified (principal); Z90.710 Acquired absence of both cervix and uterus; Z75.8 Other problems related to medical facilities and other health care; V49.49XA Driver injured in collision with other motor vehicles in traffic accident, initial encounter
CPT/HCPCS: 70450; 72125; 72131; 73030; 96372; 99284; A9270; J1885